=== PATIENT | male | born 1980 | race American Indian/Alaskan Native ===

== ENCOUNTER 2021-11-25 23:24 | Emergency (ER) | payer SELFPAY ==
[2021-11-25] MEDS ORDERED: SODIUM BICARB 8.4% 50 MEQ/50 ML SYRINGE IV ONE (23:45)
[2021-11-25] MEDS ORDERED: EPINEPHrine 1 MG/10 ML SYRINGE ONE (23:45)
[2021-11-25] MEDS ORDERED: CALCIUM CHLORIDE 1,000 MG/10 ML SYRINGE IV ONE (23:45)
--- NOTE | 2021-11-25 23:56 | Emergency Department Report ---
ED CPR HPI - General Stated Complaint: CARDIAC ARREST Time Seen by Provider: 11/25/21 23:39 Source: EMS, old records reviewed (no previous record available for review) Mode of arrival: Stretcher Limitations: Altered Mental Status, Physical Limitation - History of Present Illness Initial Comments: 41-year-old morbidly obese male with a history of hypertension presents to the hospital cardiopulmonary arrest. EMS reports that patient was in the bathroom vomiting on the scene. During transport to the ambulance he became unresponsive and developed asystole arrest. Resuscitation times: EMS was called at 22:24, arrived at scene 20: 41, and out the house at 23: 00 and arrived here at 23 21 Prior to arrival patient was in PEA arrest and asystole he received and epinephrine x2 via left IO. Accu-Chek not performed. Lxy-xpmkw-[id number] ventilations provided without intubation prior to arrival. Upon arrival patient is in asystole and [id number] ventilations and chest compressions were continued upon arrival with continuation of resuscitation efforts Patient's family member is on staff with registration here and reports patient has not seen a doctor in at least 5-years ED Review of Systems ROS: Stated complaint: CARDIAC ARREST Other details as noted in HPI Comment: Unobtainable due to pts medical conditions ED Physical Exam - Other Other exam information: General: Unresponsive, morbidly obese Head: Atraumatic Eyes: Pupils fixed ENT: Fluid in airway Neck: Normal appearance Chest: Apnea CV: Pulseless Abdomen: Soft, obese Back: Normal inspection Extremity: Normal inspection, full range of motion Neuro: GCS equals 3, unresponsive Skin: No rash - Intubation Time Out Performed: Yes Sedative: none Laryngoscope: none Size: 4 Assist Device Used: fiberoptic device ET Tube Size: 7.5 Tube Secured Depth (cm): 24 Tube Secured Location: teeth Tube Placement Confirmation: visualized tube passing t, equal breath sounds bilat, no breath sounds over epi, confirmation by capnometr Patient Tolerated Procedure: well, no complications Intubation Complications: none ED Medical Decision Making - Medical Decision Making Resuscitation efforts continued upon ED arrival. Patient was orally intubated with 7.5 ET tube and received 4 doses of epinephrine, 1 dose of sodium bicarb, 1 dose of calcium, and had an Accu-Chek of 68 upon arrival. Despite resuscitation efforts patient remained in PEA arrest that deteriorated to asystole with time of at 11:35 PM. Patient sister, , and mother informed in the ED of patient's . Critical Care Time: Yes Critical care time in (mins) excluding proc time.: 15 Critical care attestation.: If time is entered above; I have spent that time in minutes in the direct care of this critically ill patient, excluding procedure time. ED Disposition Clinical Impression: Cardiopulmonary arrest Disposition: 20 Is pt being admited?: No Condition: Stable Time of Disposition: 00:02
== END 2021-11-26 06:37 ==
LOC: ED 23:24
DX: I46.9 Cardiac arrest, cause unspecified (principal)
CPT/HCPCS: 31500; 92950; 99285; J0171; J3490